=== PATIENT | male | born 1990 | race Caucasian/White ===

== ENCOUNTER 2023-09-25 04:09 | Day surgery (SDC) | payer OTHER, SELFPAY ==
[2023-09-25] VITALS (10 sets, daily range): BP systolic 106–147; BP diastolic 43–78; PULSE 73–98; RESP 14–16; TEMP 36.6–38.2; O2SAT 96–100; BMI 25.1
--- NOTE | 2023-09-25 04:31 | CT_ITS ---
We are attempting to reach an attending provider to discuss findings. An addendum with communication details will be sent when the communication is complete. INDICATION: RLQ pain / ? Acute appendicitis EXAMINATION: CT ABDOMEN AND PELVIS WITH CONTRAST - CT Abdomen And Pelvis W/ Contrast Injection TECHNIQUE: Helically acquired images were obtained of the abdomen and pelvis following IV contrast. A radiation dose optimization technique was used for this scan. IV Contrast dosage and agent: 100 mL Isovue-370 Oral contrast: None. COMPARISON: None. FINDINGS: LOWER CHEST: Lung bases are clear. No cardiomegaly or pericardial effusion. LIVER: Homogeneous. No focal mass. GALLBLADDER AND BILIARY TREE: No calcified gallstones. No gallbladder distension or wall edema. No intra- or extrahepatic biliary ductal dilation. PANCREAS: No focal cystic or solid mass. SPLEEN: Normal size without focal cystic or solid mass. ADRENAL GLANDS: No nodules. KIDNEYS AND URETERS: Normal renal size and position. No hydronephrosis. PERITONEUM: No ascites or free air. No other fluid collection. BOWEL: No acute gastric finding. No small bowel distention or focal wall thickening. Appendix tip measures 1.1 cm with mild surrounding inflammatory stranding. Mild likely secondary diffuse wall thickening of the cecum at the appendix origin. Large colonic stool burden. LYMPH NODES: No enlarged mesenteric or retroperitoneal lymph nodes. VESSELS: Aorta is non-dilated. URINARY BLADDER: Mild bladder wall thickening.. ABDOMINAL WALL: No discrete abdominal or pelvic wall hernia. BONES: No lytic or blastic abnormality. CT/Abdomen/Pelvis W IV Cont ONLY IMPRESSION: Findings consistent with acute appendicitis. Mild wall thickening of the cecum at the appendix origin is likely secondary to appendicitis however underlying neoplasm is not completely excluded. Large colonic stool burden. Mild circumferential bladder wall thickening. Correlate for clinical cystitis. Electronically Signed: Fidencio Wynn MD at 6:08 EST ,
[2023-09-25 04:39] LABS: Absolute Lymphocyte Count 1.56 X10^3/uL (0.83-4.51); Absolute Neutrophil Count 8.5 X10^3/uL (2.0-7.7); Basophil# 0.03 X10^3/uL; Basophil% 0.3 % (0-1); Eosinophil# 0.04 X10^3/uL; Eosinophils% 0.4 % (0-5); Hematocrit 47.8 % (40-54); Hemoglobin 15.9 g/dL (13.0-16.5); Lymphocyte # 1.56 X10^3/ul (0.83-4.51); Lymphocyte % 14.1 % (19-41); Mean Corp Hgb Conc 33.3 g/dL (32-36); Mean Corpuscular Hgb 29.6 pg (27.0-32.0); Mean Platelet Vol. 10.3 fl (6.2-12.0); Monocyte# 0.87 X10^3/uL; Monocyte% 7.9 % (0-10); NRBC Flagged by Analyzer 0 % (0-5); Neutrophil # 8.49 X10^3/uL (2.7-7.7); Neutrophil % 76.8 % (47-70); Platelet Count 205 K/mm3 (150-450); RBC Distribution Width SD 39.1 fl (35.1-43.9); Red Blood Count 5.37 M/mm3 (4.6-6.2); White Blood Count 11.1 K/mm3 (4.4-11.0)
[2023-09-25] MEDS: Ondansetron 4 MG/2 ML Vial IV (04:46)
[2023-09-25] MEDS: Morphine 4 MG/ML Syringe IV (04:47)
[2023-09-25] MEDS: 0.9% Normal Saline (1000mL) 1,000 ML 999 ML IV (04:48)
[2023-09-25 04:54] LABS: AST(SGOT) 57 U/L (15-37); Alanine Aminotransfer ALT/SGPT 84 U/L (16-61); Alkaline Phosphatase 51 U/L (45-117); Anion Gap 5 (5-15); BUN 15 mg/dL (7-18); BUN/Creat Ratio 12.5 RATIO (10-20); Bilirubin, Direct 0.31 mg/dL (0.00-0.30); Calcium,Total 8.9 mg/dL (8.5-10.1); Chloride 103 mmol/L (98-107); EST Glomerular Filtration Rate 74 mL/min (>60); Est Glom Filt Rate - Afr Amer 90 mL/min (>60); Estimated Creatinine Clearance 94.13 ml/min; Globulin 3.5 g/dL (2.2-4.2); Glucose 149 mg/dL (74-106); Lipase 29 U/L (13-75); Potassium 4.2 mmol/L (3.5-5.1); Protein, Total 7.5 g/dL (6.4-8.2); Sodium Level 137 mmol/L (136-145)
[2023-09-25 05:16] LABS: Lactic Acid 1.4 mmol/L (0.4-1.9)
[2023-09-25] MEDS: HYDROmorphone 1 MG/ML Syringe IV (06:00)
[2023-09-25 06:08] LABS: Bacteria 0 SEEN /hpf (None Seen); Mucous, Urine 0 SEEN /hpf (<or=2+); Red Blood Cells-Urine 0 SEEN /hpf (0-5); Squamous Epithelial Cells - UA 0 SEEN /hpf (0-5); White Blood Cells 0 SEEN /hpf (0-5)
[2023-09-25 06:10] LABS: Color, Urine Yellow (Yellow); Glucose, Dipstick Normal (Normal); Ketone-Dipstick Negative (Negative); Leukocyte Esterase-Dipstick Negative /ul (Negative); Nitrite-Dipstick Negative (Negative); Occult Blood-Urine Negative /ul (Negative); Protein-Dipstick Negative (Negative); Specific Gravity, Urine 1.005 (1.002-1.030); Urine Bilirubin Dipstick Negative (Negative); Urine Clarity Clear (Clear); Urine Urobilinogen Normal (Normal)
--- NOTE | 2023-09-25 06:24 | EX.ED.DYSGE1 ---
HPI History of Present Illness Chief Complaint: Abd Pain Informant: patient and spouse/S.O. Narrative Narrative: Patient is a 33-year-old male with no significant past medical history. He states roughly 24 hours ago he noticed some generalized abdominal discomfort while at work and then felt sick to his stomach and had nausea with 1-2 bouts of vomiting. He states the nausea has persisted and as time has passed he has had increasing pain that is now progressed into the right lower side of his abdomen. He denies any fevers or chills or dysuria or hematuria. He denies any trauma. He states however because symptoms are worsening he has concern for potential infection and therefore comes in for evaluation [facility] Medical History no medical history no medical history Home Medications NK 09/25/23 [History Last Taken Unknown] Allergy/AdvReac Type Severity Reaction Status Date / Time No Known Allergies Allergy Verified 09/25/23 04:12 Surgical History no surgical history Social History Smoking Status: Never smoker ROS RUST ED Constitutional Constitutional ED: Denies chills or fever(s) ENT ENT ED: Denies sore throat Cardiovascular Cardiovascular: Denies chest pain Respiratory/Chest Respiratory/Chest: Denies cough or dyspnea Gastrointestinal Gastrointestinal: Reports abdominal pain, nausea and vomiting; Denies diarrhea Genitourinary Genitourinary ED: Denies dysuria or hematuria Musculoskeletal Musculoskeletal: Denies back pain or myalgias Integumentary Denies rash Neurologic Neurologic: Denies headache(s) Hematologic/Lymphatic Hematologic/Lymphatic: Denies easy bleeding or easy bruising EXAM Physical Exam Const Vital Signs: 09/25/23 04:10 09/25/23 04:13 09/25/23 05:59 Temperature 98.0 F Temperature Source Temporal Pulse Rate 73 74 Respiratory Rate 14 15 Blood Pressure 147/70 H 144/78 H Blood Pressure Mean 95 100 Pulse Ox 100 99 Oxygen Delivery Method Room Air Room Air Positive well nourished and well developed General Appearance ED: well developed; Negative for pallor HEENT Reports moist mucous membranes HEENT Narrative: No signs of infection noted in the posterior pharynx Eyes PERRL and EOMs intact bilaterally General Eye ED: Negative for scleral icterus Neck supple Resp normal respiratory effort and clear to auscultation bilaterally Cardio regular rate and regular rhythm Rate: other Other Details: Heart is regular rate and rhythm without murmurs rubs or gallops Radial and carotid pulses are equal and symmetric GI non-distended GI Narrative: Abdomen is soft and nondistended with normal active bowel sounds. Patient has pain on palpation in the right lower quadrant with voluntary guarding or rebound at this site. Positive heel strike psoas and obturator signs as well. Auscultation: normoactive bowel sounds Palpation: soft Extremity normal to inspection Neuro oriented x3, CN's II-XII intact bilaterally and no sensory deficits noted Sensorium / Orientation: alert Motor Exam: strength 5/5 throughout Psych mental status grossly normal Skin no rashes or lesions noted General Skin Exam: Negative for jaundice or pallor MDM MDM MDM Narrative Medical decision making narrative: Patient presented to the ER slightly hypertensive but otherwise with stable vitals. He reported generalized abdominal pain progressing to the right lower quadrant with nausea and vomiting. Differential diagnosis is for acute appendicitis versus biliary colic versus pancreatitis versus UTI/pyelonephritis versus kidney stone. As his exam and history is most consistent with acute appendicitis basic blood work and a CT scan with IV contrast were obtained. Labs revealed no clinically significant findings. CT scan however did show inflammatory changes in the right lower quadrant consistent with acute appendicitis. Patient was then started on Zosyn and general surgery was contacted. Dr. Lora/general surgeon evaluated the patient in the ER and agrees with the diagnosis and plan is for admission to his service for appendectomy History & Record Review Discussion w/independent historian: Patient and Significant other Lab Data Attestation: I reviewed the patient's lab results. Labs: Laboratory Results - last 24 hr 09/25/23 09/25/23 04:30 05:58 WBC 11.1 H RBC 5.37 Hgb 15.9 Hct 47.8 MCV 89.0 MCH 29.6 MCHC 33.3 RDW Std Deviation 39.1 RDW Coeff of Roseline 12.0 Plt Count 205 MPV 10.3 Immature Gran % (Auto) 0.500 Neut % (Auto) 76.8 H Lymph % (Auto) 14.1 L Chambers % (Auto) 7.9 Eos % (Auto) 0.4 Baso % (Auto) 0.3 Absolute Neuts (auto) 8.5 H Absolute Lymphs (auto) 1.56 Nucleated RBC % 0 Sodium 137 Potassium 4.2 Chloride 103 Carbon Dioxide 29.0 Anion Gap 5 BUN 15 Creatinine 1.20 Estim Creat Clear Calc 94.13 Est GFR (MDRD) Af Amer 90 Est GFR (MDRD) Non-Af 74 BUN/Creatinine Ratio 12.5 Glucose 149 H Lactic Acid 1.4 Calcium 8.9 Total Bilirubin 1.30 H Direct Bilirubin 0.31 H AST 57 H ALT 84 H Alkaline Phosphatase 51 Total Protein 7.5 Albumin 4.0 Globulin 3.5 Lipase 29 Urine Color Yellow Urine Clarity Clear Urine pH 7.0 Ur Specific [place] 1.005 Urine Protein Negative Urine Glucose (UA) Normal Urine Ketones Negative Urine Occult Blood Negative Urine Nitrite Negative Urine Bilirubin Negative Urine Urobilinogen Normal Ur Leukocyte Esterase Negative Urine RBC 0 SEEN Urine WBC 0 SEEN Ur Squamous Epith Cells 0 SEEN Urine Bacteria 0 SEEN Urine Mucus 0 SEEN Radiography Diagnostic Testing: Clinical Impression(s) from Imaging Studies Abdomen/Pelvis CT 09/25/23 04:31 IMPRESSION: Findings consistent with acute appendicitis. Mild wall thickening of the cecum at the appendix origin is likely secondary to appendicitis however underlying neoplasm is not completely excluded. Large colonic stool burden. Mild circumferential bladder wall thickening. Correlate for clinical cystitis. Electronically Signed: Fidencio Wynn MD at 6:08 EST Reading Location ID and State: [facility] / [place] Tel , Service support , ADDENDUM: 09/25/23 06 IMPRESSION: Findings consistent with acute appendicitis. Mild wall thickening of the cecum at the appendix origin is likely secondary to appendicitis however underlying neoplasm is not completely excluded. Large colonic stool burden. Mild circumferential bladder wall thickening. Correlate for clinical cystitis. N.B. : The above Results were Read Back by Fidencio Wynn MD to Jasmeet Guo DO, and understanding confirmed on 09/25/2023 06:18:55 (ET). Electronically Signed: Fidencio Wynn MD at 6:08 EST , Management Discussion w/another healthcare provider: Unix Architect and Radiologist Discharge Plan Dx/Rx/DC Orders Clinical Impression: Acute appendicitis Disposition Disposition: Acute Care [facility]
--- NOTE | 2023-09-25 06:54 | HP.PCM_ITS ---
HPI - General General Date of Service: 09/25/23 Chief Complaint: Acute onset ab pain with associated nausea HPI Narrative ABDIAZIZ RIDDLE, is a 33 M who presents to [facility] with complaints of approximately 24 hours of migratory abdominal pain that began in his mid abdomen and projected towards the right lower quadrant. He notes that this pain has persisted unlike any prior pain he may have had. He also notes some associated discomfort down into his scrotum. Beyond pain, he confirms some nausea and anorexia but denies fever, chills, or vomiting. Patient's ER work-up notable for CBC with leukocytosis and left shift. Other labs are largely unremarkable?including urinalysis. CT imaging of the abdomen pelvis done with IV contrast shows evidence of acute uncomplicated appendicitis with some associated mild cecal wall thickening. 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 He denies any history of anesthetic difficulties. [facility] Medical History no medical history Home Medications NK 09/25/23 [History Last Taken Unknown] Allergy/AdvReac Type Severity Reaction Status Date / Time No Known Allergies Allergy Verified 09/25/23 04:12 Surgical History no surgical history Social History Smoking Status: Never smoker ROS Constitutional Constitutional: Reports anorexia; Denies chills or fever(s) Gastrointestinal Gastrointestinal: Reports abdominal pain and nausea; Denies constipation, diarrhea or vomiting Genitourinary Genitourinary: Reports scrotal pain; Denies dysuria Vital Signs Vital Signs Vital Signs: 09/25/23 04:10 09/25/23 04:13 09/25/23 05:59 Temperature 98.0 F Temperature Source Temporal Pulse Rate 73 74 Respiratory Rate 14 15 Blood Pressure 147/70 H 144/78 H Blood Pressure Mean 95 100 Pulse Ox 100 99 Oxygen Delivery Method Room Air Room Air Weight Weight: 180 lb 1.883 oz Body Mass Index (BMI) 25.1 Physical Exam Const alert, oriented x3 and no apparent distress General Appearance: cooperative Resp normal respiratory effort GI GI Narrative: RUQ transverse scar, toned, tenderness over McBurney's point with evidence of peritonitis. Positive Rovsing's and positive psoas sign. Negative obturator. Results Lab / Micro Data 09/25/23 04:30 09/25/23 04:30 Labs: Laboratory Results - last 24 hr 09/25/23 04:30: WBC 11.1 H, RBC 5.37, Hgb 15.9, Hct 47.8, MCV 89.0, MCH 29.6, MCHC 33.3, RDW Std Deviation 39.1, RDW Coeff of Roseline 12.0, Plt Count 205, MPV 10.3, Immature Gran % (Auto) 0.500, Neut % (Auto) 76.8 H, Lymph % (Auto) 14.1 L, [place] % (Auto) 7.9, Eos % (Auto) 0.4, Baso % (Auto) 0.3, Absolute Neuts (auto) 8.5 H, Absolute Lymphs (auto) 1.56, Nucleated RBC % 0, Sodium 137, Potassium 4.2, Chloride 103, Carbon Dioxide 29.0, Anion Gap 5, BUN 15, Creatinine 1.20, Estim Creat Clear Calc 94.13, Est GFR (MDRD) Af Amer 90, Est GFR (MDRD) Non-Af 74, BUN/Creatinine Ratio 12.5, Glucose 149 H, Lactic Acid 1.4, Calcium 8.9, Total Bilirubin 1.30 H, Direct Bilirubin 0.31 H, AST 57 H, ALT 84 H, Alkaline Phosphatase 51, Total Protein 7.5, Albumin 4.0, Globulin 3.5, Lipase 29 09/25/23 05:58: Urine Color Yellow, Urine Clarity Clear, Urine pH 7.0, Ur Specific [place] 1.005, Urine Protein Negative, Urine Glucose (UA) Normal, Urine Ketones Negative, Urine Occult Blood Negative, Urine Nitrite Negative, Urine Bilirubin Negative, Urine Urobilinogen Normal, Ur Leukocyte Esterase Negative, Urine RBC 0 SEEN, Urine WBC 0 SEEN, Ur Squamous Epith Cells 0 SEEN, Urine Bacteria 0 SEEN, Urine Mucus 0 SEEN Imagaing Radiology Impression Abdomen/Pelvis CT 09/25/23 04:31 IMPRESSION: Findings consistent with acute appendicitis. Mild wall thickening of the cecum at the appendix origin is likely secondary to appendicitis however underlying neoplasm is not completely excluded. Large colonic stool burden. Mild circumferential bladder wall thickening. Correlate for clinical cystitis. Electronically Signed: Fidencio Wynn MD at 6:08 EST , ADDENDUM: 09/25/23 0625 IMPRESSION: Findings consistent with acute appendicitis. Mild wall thickening of the cecum at the appendix origin is likely secondary to appendicitis however underlying neoplasm is not completely excluded. Large colonic stool burden. Mild circumferential bladder wall thickening. Correlate for clinical cystitis. N.B. : The above Results were Read Back by Fidencio Wynn MD to Jasmeet Guo DO, and understanding confirmed on 09/25/2023 06:18:55 (ET). Electronically Signed: Fidencio Wynn MD at 6:08 EST , Assessment & Plan Assessment/Plan (1) Acute appendicitis: QUALIFIERS: Acute appendicitis type: with localized peritonitis PLAN: This is a 33-year-old, otherwise healthy, male who presents with signs and symptoms of acute appendicitis. Duration of symptoms is approximately [address] suggests this is uncomplicated in its presentation. Given this diagnosis, I have recommended emergent laparoscopic appendectomy and emergency medicine has already dosed patient with empiric antibiotics. Procedure was described in detail including post procedure expectations. I shared with patient and his family that we could plan for discharge home following the procedure as long as no unexpected findings were made at the time of the operation. I discussed the expectation for postoperative, outpatient follow-up and the need to maintain activity restrictions for 2 weeks postop to permit healing. Mr. Riddle provides his verbal consent to proceed and the operating room has been notified. Charges/Coding Visit Charges Office Visits / Consults: 06054 ED Visit; High/Urgent Severity
[2023-09-25] MEDS: Piperacil/Tazobactam 3.375 GM in 0.9% Normal Saline (50mL MB+) 50 ML IV (07:02)
[2023-09-25] MEDS: Bupivacaine Mpf 0.5% 30 ML VIAL (09:37)
--- NOTE | 2023-09-25 09:44 | PCM.OPRPT ---
Report of Operation Date of Procedure: 09/25/23 Pre-Operative Diagnosis: Appendicitis Post-Operative Diagnosis: Acute uncomplicated appendicitis Surgery/Procedure Performed:: Upper scopic appendectomy Surgeon: Neto Lora Type of Anesthesia: General/Supplemental Anesthesiologist: Andres Evans Specimen's removed: Appendix Estimated Blood Loss (mL): 5 Description of Procedure: After appropriate identification in the preoperative holding area, the patient was brought to the operating room and placed supine on the operating room table. Antibiotics had been preoperatively administered by emergency medicine. Patient was then induced with general endotracheal anesthetic. The abdomen was prepped and draped in usual sterile fashion. Formal timeout was conducted to confirm both the patient and the procedure. A supraumbilical incision was made and carried down to the level of the fascia which was sharply opened. After opening the peritoneum in like fashion a finger sweep was made to confirm position, and a balloon trocar was placed and pneumoperitoneum was established to 15 mmHg. Patient was positioned in Trendelenburg with the left side down. 2 additional 5 mm trocars were placed in the left lower quadrant and suprapubic positions. The peritoneum was inspected and there were no signs of inadvertent injury from this Jiang entry. The appendix was visualized with a moderate degree of inflammation and was adherent to the anterior abdominal wall terminating in an intersection with the medial umbilical ligament on the right. There was no evidence of purulent fluid or perforation more generally. Bluntly it was swept off of the anterior abdominal wall and was stretched out towards the pelvis. There was an adhesion to the pelvic brim as well as from the TI to the sale of the appendix. Using blunt laparoscopic dissection the terminal ileum was swept away from the appendix and the mesoappendix was divided with application of a laparoscopic harmonic approaching the base of the appendix. Then the base of the appendix was sealed and amputated with the use of an Endo FÁTIMA stapler. The appendix was placed in an Endo Catch bag. The staple line was inspected for hemostasis. After hemostasis was confirmed the appendix was removed from the umbilical port site. Pneumoperitoneum was then evacuated and the supraumbilical port site fascia was closed with #1 Vicryl in a [id number] fashion. The port sites were infiltrated with 30 mL local anesthetic. The skin of each port site was closed with 4-0 Monocryl in a subcuticular fashion. Steri-Strips and OpSite dressings were applied. Patient tolerated procedure well without any apparent complications. They were awoken from general anesthetic without issue and transferred to post anesthesia care unit for ongoing recovery. Grafts/Implants Used: None Complications None Admit VTE Documentation VTE Mechan Device Prophylaxis: SCD's
--- NOTE | 2023-09-25 09:45 | DCINST_ITS ---
Discharge Instructions Diet Discharge Diet: No restrictions Activity Discharge Activity: May Not Drive (No driving while using narcotic pain medication) and May Shower (Postoperative day 1) May shower in (days): 2 Ice area for (Minutes): 20 Lifting Restrictions: No lifting greater than 15 pounds for 2 weeks after surgery Dressing / Incision Call your doctor if your incision/area has: Continuous Slow Oozing, Increased Pain/ Swelling, Increased Redness, Foul Smelling Discharge and Swelling at the incision site Call your doctor if you observe: Fever of 101 or Higher Remove Dressing in: 2 days (Please leave Steri-Strips intact until they fall off spontaneously or are taken off at your follow-up visit) Cleanse incision/area with: Soap & Water Follow Up Care Please Follow Up With: Neto Lora MD When: 7-10days postop Test Results: Test results from this visit will be discussed in further detail at your follow- up appointment, if applicable. Discharge Plan Admission Primary Reason for Your Visit: Appendicitis Attending Provider: Neto Lora Primary Care Provider: Care Physician,Pina Primary Discharge Orders/Prescriptions Prescriptions: New oxycodone 5 mg tablet 5 mg PO Q6H PRN (Reason: pain) 3 Days Qty: 10 0RF Referrals / Follow Up: Care Physician,Pina Primary [Primary Care Provider] - Disposition Disposition (needs filled in before D/C Order can be placed): Home, Self Care
--- NOTE | 2023-09-25 10:13 | SUR.PHASEI ---
DR KUMAR AWARE OF PT TEMP
[2023-09-25] MEDS: 0.9% Normal Saline (1000mL) 1,000 ML 15 ML IV ×2 (10:25→10:51)
--- NOTE | 2023-09-27 08:20 | APP_PTH ---
PATIENT: ABDIAZIZ RIDDLE LOC: [facility] U#:[id number] AGE/SX: 33/M ROOM: RE09/25/[address]: Dr. Neto Lora MD : 1990 BED: DIS: 09/25/2023 SPEC #: [id number] RECD: 09/28/23 08:31 STATUS: TRI PEG #: [id number] NAREN: 09/27/23 08:[address]: Neto Lora DEPT: SURGICAL PATHOLOGY RECD BY: Meagan Caruso ENTERED: 09/28/23 08:32 SP TYPE: APPENDIX OT DR: No Primary Care Phys Tissues: Appendix, NOS Procedures: Surgery Specimen Level III HEADER OPERATION: Laparoscopic appendectomy PRE-OP DIAGNOSIS: Acute appendicitis TISSUE SUBMITTED: Appendix MICROSCOPIC DIAGNOSIS Appendix, appendectomy: Acute necrotizing appendicitis. Acute serositis. AM:jeff 09/29/2023 MICROSCOPIC DESCRIPTION Slides are reviewed. GROSS DESCRIPTION Received in fixative is one container labeled with the patient's name and designated appendix. The specimen consists of an appendix measuring 4.6 cm in length and 1.5 cm in average diameter. No gross perforations are evident. Serial sections reveal a patent lumen. No mass lesion is identified. Core Inserter sections are submitted in one cassette. / AM:jeff 09/28/2023 TC:2 CPT: 38364
== END 2023-09-25 11:46 | disposition home or self-care (01) ==
LOC: ED 06:29 → SDC 07:16 → AC 07:19
PROVIDERS: Emergency Provider Emergency Medicine; Visit Provider Surgery
PROC: 0DTJ4ZZ Resection of Appendix, Percutaneous Endoscopic Approach (ICD-10-PCS; CPT 44970; principal; 2023-09-25 08:00)
DX: K35.80 Unspecified acute appendicitis (principal)
CPT/HCPCS: 44970; 00840; 74177; 80048; 80076; 81001; 83605; 83690; 85025; 88304; 99282; J7030; Q9967; A4216; J2405